=== PATIENT | female | born 1980 | race Caucasian/White ===

== ENCOUNTER 2017-08-03 09:05 | Outpatient (CLI) | payer OTHER ==
[2017-08-03 12:56] LABS: BASOPHILS % (AUTO) 0.6 %; EOSINOPHILS # (AUTO) 0.5 10^3/uL (0.0-0.7); LYMPHOCYTES % (AUTO) 35.2 %; MEAN CORPUSCULAR HGB CONC 34.3 g/dL (32.0-36.0); MEAN CORPUSCULAR VOLUME 87.4 fL (81.0-99.0); MEAN PLATELET VOLUME 8.4 fL (7.9-10.8); MONOCYTES # (AUTO) 0.5 10^3/uL (0.0-1.0); NEUTROPHILS # (AUTO) 2.7 10^3/uL (1.5-6.6); NEUTROPHILS % (AUTO) 47.2 %; PLT - PLATELET COUNT 264 10^3/uL (130-450); RED BLOOD COUNT 4.68 10^6/uL (4.20-5.40); RED CELL DISTRIBUTION WIDTH 13.7 % (12.0-15.0); WHITE BLOOD COUNT 5.8 x10^3/uL (4.8-10.8)
[2017-08-03 13:37] LABS: CHOLESTEROL 174 mg/dL; HDL CHOLESTEROL 58 mg/dL; LDL CHOLESTEROL,CALCULATED 104 mg/dL; LDL/HDL RATIO 1.8 (<4.4); VLDL CHOLESTEROL 12 mg/dL
== END 2017-08-03 23:59 ==
LOC: LAB.WCP 09:05
PROVIDERS: ATTEND Physician Assistant
DX: Z00.00 Encounter for general adult medical examination without abnormal findings (principal); E55.9 Vitamin D deficiency, unspecified; E03.9 Hypothyroidism, unspecified
CPT/HCPCS: 36415; 80061; 82306; 83721; 84443; 85025

== ENCOUNTER 2017-08-15 19:08 | Outpatient (CLI) | payer OTHER ==
--- NOTE | 2017-08-16 09:14 | Ultrasound Report ---
LEFT INGUINAL ULTRASOUND: 08/15/2017 CLINICAL INDICATION: Left groin pain. TECHNIQUE: Real-time scanning was performed with printing sales representative static images obtained. FINDINGS: Ultrasound of the left groin was performed. There is a small inguinal hernia present, containing fat, without evidence of bowel herniation. The hernia neck measures 1.0 cm. No adenopathy is appreciated. IMPRESSION: SMALL LEFT INGUINAL HERNIA, CONTAINING FAT. TD: 08/16/2017 09:10 [facility]
== END 2017-08-15 19:09 | disposition home or self-care (01) ==
LOC: DI 19:08
PROVIDERS: ATTEND Physician Assistant
DX: R10.32 Left lower quadrant pain (principal); K40.90 Unilateral inguinal hernia, without obstruction or gangrene, not specified as recurrent
CPT/HCPCS: 76857

== ENCOUNTER 2017-12-11 11:01 | Outpatient (CLI) | payer OTHER ==
[2017-12-11 19:56] LABS: THYROID STIMULATING HORMONE 1.61 uIU/mL (0.34-5.60)
[2017-12-11 19:58] LABS: FREE T4 (FREE THYROXINE) 0.97 ng/dL (0.58-1.64)
== END 2017-12-11 11:02 | disposition home or self-care (01) ==
LOC: LAB.WCP 11:01
PROVIDERS: ATTEND Physician Assistant
DX: E03.9 Hypothyroidism, unspecified (principal)
CPT/HCPCS: 36415; 84439; 84443

== ENCOUNTER 2018-09-05 11:03 | Outpatient (CLI) | payer OTHER | END 2018-09-05 11:04 | disposition home or self-care (01) | LOC: LAB.WCP 11:03 | PROVIDERS: ATTEND Physician Assistant | DX: E03.9 Hypothyroidism, unspecified (principal) | CPT/HCPCS: 36415; 84443; 84481 ==